=== PATIENT | female | born 1945 | race Caucasian/White ===

== ENCOUNTER 2017-02-15 08:52 | Day surgery (SDC) | payer OTHER ==
[~2017-02-15] VITALS: Ht 160 cm; Wt 108.0 kg
--- NOTE | ~2017-02-15 | EGD ---
EGD REPORT [facility] [address] [address] NAME: SUSHMA ROSS : [birth year] STATUS : REG [facility]#: [id number] AGE: 71 ADM/REG DATE : 02/15/17 MR#: [id number] REPORT SERV DATE: 02/15/17 DICTATED BY: JORGE WERNER DATE: 02/15/17 REPORT STATUS : Draft [facility]ANSCRIBED BY: [facility] DATE: 02/15/17 Endoscopy Center Patient Name: Sushma Ross Date of : 1945 Attending MD: JORGE WERNER MD Procedure Date No Time: 02/15/2017 Procedure: Upper GI endoscopy Indications: Heartburn, Suspected esophageal reflux, Diarrhea Referring MD: LISA KAMINSKI MD Medicines: as per anesthesia Complications: No immediate complications. Procedure: Pre-Anesthesia Assessment: - ASA Grade Assessment: III - A patient with severe systemic disease. After obtaining informed consent, the endoscope was passed under direct vision. Throughout the procedure, the patient's blood pressure, pulse, and oxygen saturations were monitored continuously. The GIF H190 [id number] was introduced through the mouth, and advanced to the third part of duodenum. The upper GI endoscopy was accomplished without difficulty. The patient tolerated the procedure. Findings: The examined esophagus was normal. A small hiatus hernia was present. The examined duodenum was normal. Biopsies were taken with a cold forceps for histology. Impression: - Normal esophagus. - Hiatus hernia. - Normal examined duodenum. Biopsied. Recommendation: - Await pathology results. - Follow an antireflux regimen. - Continue present medications. Procedure Code(s): --- Professional --- 64212, Esophagogastroduodenoscopy, flexible, transoral; with biopsy, single or multiple Diagnosis Code(s): --- Professional --- K44.9, Diaphragmatic hernia without obstruction or gangrene R12, Heartburn EGD REPORT [facility] [address] [facility] [place]. [address] NAME: SUSHMA ROSS : [birth year] STATUS : REG [facility] PAT#: [id number] AGE: 71 ADM/REG DATE : 02/15/17 MR#: [id number] REPORT SERV DATE: 02/15/17 DICTATED BY: JORGE WERNER. DATE: 02/15/17 REPORT STATUS : Draft TRANSCRIBED BY: [employer] DATE: 02/15/17 R19.7, Diarrhea, unspecified CPT copyright 2013 [employer]. All rights reserved. The codes documented in this report are preliminary and upon publisher assistant review may be revised to meet current compliance requirements. JORGE WERNER MD 02/15/2017 10:49 AM This report has been signed electronically. Number of Addenda: 0 Note Initiated On: 02/15/2017 10:25 AM Scope Withdrawal Time 0 hours 0 minutes 0 seconds [address] [place] [address]
--- NOTE | ~2017-02-15 | EGD ---
EGD REPORT [facility] [address] [address] NAME: SUSHMA ROSS : [birth year] STATUS : REG [facility] PAT#: [id number] AGE: 71 ADM/REG DATE : 02/15/17 MR#: [id number] REPORT SERV DATE: 02/15/17 DICTATED BY: JORGE WERNER DATE: 02/15/17 REPORT STATUS : Draft [facility]ANSCRIBED BY: [facility] DATE: 02/15/17 Endoscopy Center Patient Name: Sushma Ross Date of : 1945 Attending MD: JORGE WERNER MD Procedure Date No Time: 02/15/2017 Procedure: Colonoscopy Indications: Clinically significant diarrhea of unexplained origin, FH of Colon Cancer - 1st degree relative, FH of Colon Cancer -distant relative Referring MD: LISA KAMINSKI MD Medicines: as per anesthesia Complications: No immediate complications. Procedure: Pre-Anesthesia Assessment: - ASA Grade Assessment: III - A patient with severe systemic disease. After I obtained informed consent, the scope was passed under direct vision. Throughout the procedure, the patient's blood pressure, pulse, and oxygen saturations were monitored continuously. The PCF [id number] was introduced through the anus and advanced to the cecum, identified by appendiceal orifice and ileocecal valve. The colonoscopy was performed without difficulty. The patient tolerated the procedure. The quality of the bowel preparation was adequate to identify polyps. Findings: The perianal and digital rectal examinations were normal. A sessile polyp was found in the ascending colon. The polyp was 3 mm in size. The polyp was removed with a cold biopsy forceps. Resection and retrieval were complete. A sessile polyp was found in the descending colon. The polyp was 3 mm in size. The polyp was removed with a cold biopsy forceps. Resection and retrieval were complete. A few small-mouthed diverticula were found in the sigmoid colon and in the descending colon. Internal hemorrhoids were found during endoscopy and were mild. Four biopsies were obtained in the rectum and in the ascending colon with cold forceps for histology. Impression: - One 3 mm polyp in the ascending colon. Resected and retrieved. - One 3 mm polyp in the descending colon. Resected and retrieved. - Diverticulosis in the sigmoid colon and in the EGD REPORT [address] [address] NAME: SUSHMA ROSS : [birth year] STATUS : REG [facility]#: [id number] AGE: 71 ADM/REG DATE : 02/15/17 MR#: [id number] REPORT SERV DATE: 02/15/17 DICTATED BY: JORGE WERNER DATE: 02/15/17 REPORT STATUS : Draft TRANSCRIBED BY: [employer] DATE: 02/15/17 descending colon. - Internal hemorrhoids. - Four biopsies were obtained in the rectum and in the ascending colon. Recommendation: - Await pathology results. - Repeat colonoscopy for surveillance based on pathology results. Procedure Code(s): --- Professional --- 42257, Colonoscopy, flexible, proximal to splenic flexure; with biopsy, single or multiple Diagnosis Code(s): --- Professional --- D12.4, Benign neoplasm of descending colon D12.2, Benign neoplasm of ascending colon K64.8, Other hemorrhoids K57.30, Diverticulosis of large intestine without perforation or abscess without bleeding R19.7, Diarrhea, unspecified Z80.0, Family history of malignant neoplasm of digestive organs CPT copyright 2013 [employer]. All rights reserved. The codes documented in this report are preliminary and upon ordnance truck installation supervisor review may be revised to meet current compliance requirements. JORGE WERNER MD 02/15/2017 11:12 AM This report has been signed electronically. Number of Addenda: 0 Note Initiated On: 02/15/2017 10:32 AM Scope Withdrawal Time 0 hours 9 minutes 50 seconds [address] [address]
[~2017-02-15 08:52] MED LIST: AFRIN15 NAS; ALBUTEROL5 INH; ALEVE PM PO; ASAB PO; BUM1 PO; CELEXA20 PO; GLUMETZA500 MG PO; KLOR-CON M2020 MEQ PO; LORTAB10 PO; M-END PE PO; NORCO1 TAB PO; OXAPROZIN600 MG PO; PRILO PO; REFRESH OPH; REFRESH OPH SO0.3 ML OPH; RX EYE DROP OPH; SPIRO25 PO; SYMBICORT 160/41 INH INH; VITAMIN D31000 UNIT PO; XANAX1 MG PO; ZOCOR40 PO; ZOFRAN4 PO
== END 2017-02-15 23:59 | disposition home or self-care (01) ==
LOC: DMU 08:52
PROVIDERS: Internal Medicine Gastroenterology
PROC: 0DBP8ZZ Excision of Rectum, Via Natural or Artificial Opening Endoscopic (ICD-10-PCS; 2017-02-15)
PROC: 0DB98ZX Excision of Duodenum, Via Natural or Artificial Opening Endoscopic, Diagnostic (ICD-10-PCS; 2017-02-15)
PROC: 0DBK8ZZ Excision of Ascending Colon, Via Natural or Artificial Opening Endoscopic (ICD-10-PCS; principal; 2017-02-15 10:00)
PROC: 0DBM8ZZ Excision of Descending Colon, Via Natural or Artificial Opening Endoscopic (ICD-10-PCS; 2017-02-15 10:00)
DX: D12.2 Benign neoplasm of ascending colon (principal); D12.4 Benign neoplasm of descending colon; K57.30 Diverticulosis of large intestine without perforation or abscess without bleeding; K64.8 Other hemorrhoids; K44.9 Diaphragmatic hernia without obstruction or gangrene; K21.9 Gastro-esophageal reflux disease without esophagitis; E11.21 Type 2 diabetes mellitus with diabetic nephropathy; E78.00 Pure hypercholesterolemia, unspecified; D64.9 Anemia, unspecified; J45.909 Unspecified asthma, uncomplicated; F41.9 Anxiety disorder, unspecified; F32.9 Major depressive disorder, single episode, unspecified; M19.90 Unspecified osteoarthritis, unspecified site; E66.9 Obesity, unspecified; Z68.41 Body mass index [BMI] 40.0-44.9, adult; Z87.891 Personal history of nicotine dependence; Z80.0 Family history of malignant neoplasm of digestive organs; Z88.0 Allergy status to penicillin; Z88.2 Allergy status to sulfonamides; Z96.1 Presence of intraocular lens; Z98.41 Cataract extraction status, right eye; Z98.42 Cataract extraction status, left eye; Z90.710 Acquired absence of both cervix and uterus; Z79.82 Long term (current) use of aspirin; Z79.899 Other long term (current) drug therapy; Z98.890 Other specified postprocedural states
CPT/HCPCS: 82962; 88305